=== PATIENT | female | born 1950 | race Caucasian/White ===

== ENCOUNTER 2024-10-21 06:41 | Day surgery (SDC) | payer MEDICARE ==
[~2024-10-21] VITALS: Ht 167.6 cm; Wt 83.3 kg
[2024-10-21] MEDS: OFLOXACIN 0.3 % (OCUFLOX) OPTH SOL 5ML OD ONE (06:00)
[2024-10-21] MEDS: LIDOCAINE 3.5 % 1ML OPHTH TOPICAL GEL OU ONE (06:00)
[~2024-10-21 06:41] MED LIST: CITA40TA7 PO; FOLI1TAB11 PO; LEVO100T5 PO; METH2.5T48 PO; PANT20TA6 PO; PHENYLEPHRINE 10% OPHTH SOL 5ML OD PRN; PYRI60TA2 PO; TOPI-21 PO
[2024-10-21] MEDS: TROPICAMIDE 1% OPHTH SOLN 15ML OD SCH (07:32)
[2024-10-21] MEDS: PHENYLEPHRINE 2.5% OPHTH SOL 2ML OD SCH (07:32)
[2024-10-21] MEDS: CYCLOPENTOLATE 1% OPHTH SOLN 2ML BTL OD SCH (07:32)
[2024-10-21] MEDS ORDERED: MIDAZOLAM INJ 2MG/2ML VIAL As Ordered ONE (08:31)
[2024-10-21] MEDS ORDERED: fentaNYL 100 MCG/2 ML INJECTION As Ordered ONE (08:31)
[2024-10-21] MEDS: CEFUROXIME 1MG/0.1ML INTRACAMERAL INJ As Ordered ONE (08:56)
[2024-10-21] MEDS: LIDOCAINE 1% SDV 5ML VIAL As Ordered ONE (08:56)
[2024-10-21] MEDS: BSS IRRIG/VANCO(10MG)/TOBRA(5MG)/EPINEPH(1:1000-0.5CC)500ML BAG-ORONLY As Ordered ONE (08:56)
[2024-10-21 09:07] VITALS: BP 134/77; TEMP 96.9; O2SAT 96
== END 2024-10-21 09:28 | disposition home or self-care (01) ==
LOC: M SDC 06:41
PROVIDERS: ATTEND Ophthalmology
DX: H25.11 Age-related nuclear cataract, right eye (principal); G70.00 Myasthenia gravis without (acute) exacerbation; Z87.891 Personal history of nicotine dependence; Z79.899 Other long term (current) drug therapy
CPT/HCPCS: 66984; J0697; J2250; J3010; V2632

== ENCOUNTER 2024-11-04 09:34 | Day surgery (SDC) | payer MEDICARE ==
[~2024-11-04] VITALS: Ht 167.6 cm; Wt 81.2 kg
[~2024-11-04 09:34] MED LIST changes: +MIDAZOLAM INJ 2MG/2ML VIAL As Ordered ONE; -PHENYLEPHRINE 10% OPHTH SOL 5ML OD PRN; +PHENYLEPHRINE 10% OPHTH SOL 5ML OS PRN; +fentaNYL 100 MCG/2 ML INJECTION As Ordered ONE
[2024-11-04] MEDS: LIDOCAINE 3.5 % 1ML OPHTH TOPICAL GEL OU ONE (10:35)
[2024-11-04] MEDS: OFLOXACIN 0.3 % (OCUFLOX) OPTH SOL 5ML OS ONE (10:35)
[2024-11-04] MEDS: CYCLOPENTOLATE 1% OPHTH SOLN 2ML BTL OS SCH (10:35)
[2024-11-04] MEDS: TROPICAMIDE 1% OPHTH SOLN 15ML OS SCH (10:35)
[2024-11-04] MEDS: PHENYLEPHRINE 2.5% OPHTH SOL 2ML OS SCH (10:36)
[2024-11-04] MEDS ORDERED: TRAZ-252 PO (10:47)
[2024-11-04] MEDS: CEFUROXIME 1MG/0.1ML INTRACAMERAL INJ As Ordered ONE (11:41)
[2024-11-04] MEDS: BSS IRRIG/VANCO(10MG)/TOBRA(5MG)/EPINEPH(1:1000-0.5CC)500ML BAG-ORONLY As Ordered ONE (11:41)
[2024-11-04] MEDS: LIDOCAINE 1% SDV 5ML VIAL As Ordered ONE (11:41)
[2024-11-04 11:50] VITALS: BP 114/55; TEMP 96.8; O2SAT 98
== END 2024-11-04 12:12 | disposition home or self-care (01) ==
LOC: M SDC 09:34
PROVIDERS: ATTEND Ophthalmology
DX: H25.12 Age-related nuclear cataract, left eye (principal); E03.9 Hypothyroidism, unspecified; E78.5 Hyperlipidemia, unspecified; K21.9 Gastro-esophageal reflux disease without esophagitis; Z79.899 Other long term (current) drug therapy; Z79.890 Hormone replacement therapy; F32.A Depression, unspecified; Z85.3 Personal history of malignant neoplasm of breast; Z92.21 Personal history of antineoplastic chemotherapy; Z92.3 Personal history of irradiation; Z90.49 Acquired absence of other specified parts of digestive tract; Z87.891 Personal history of nicotine dependence
CPT/HCPCS: 66984; J0697; J2250; J3010; V2632